=== PATIENT | female | born 2000 | race Caucasian/White ===

== ENCOUNTER 2021-07-10 21:17 | Emergency (ER) | payer OTHER ==
[~2021-07-10] VITALS: Ht 162.6 cm; Wt 83.1 kg
[2021-07-10 21:25] VITALS: BP 129/74
[2021-07-11] MEDS ORDERED: HYDROcodone/APAP 5/325 TABLET PO ONE
[2021-07-11] MEDS ORDERED: HYDROcodone/APAP 5/325 TABLET ONE (00:18)
== END 2021-07-11 00:32 | disposition home or self-care (01) ==
LOC: EDBD 21:17 → ED 23:00
DX: S52.134A Nondisplaced fracture of neck of right radius, initial encounter for closed fracture (principal); M25.421 Effusion, right elbow; W18.30XA Fall on same level, unspecified, initial encounter; Y93.89 Activity, other specified; Y92.89 Other specified places as the place of occurrence of the external cause; Y99.8 Other external cause status
CPT/HCPCS: 29105; 99284